=== PATIENT | female | born 1985 | race Hispanic/Latino ===

== ENCOUNTER 2022-03-18 10:23 | Outpatient (CLI) | payer OTHER | END 2022-03-18 10:24 | disposition home or self-care (01) | LOC: BICULT 10:23 | PROVIDERS: ATTEND Family Medicine | DX: M79.661 Pain in right lower leg (principal) ==

== ENCOUNTER 2023-02-11 12:25 | Outpatient (CLI) | payer OTHER | END 2023-02-11 12:26 | disposition home or self-care (01) | LOC: BICULT 12:25 | PROVIDERS: ATTEND Nurse Practitioner Family | DX: R10.2 Pelvic and perineal pain (principal); N88.8 Other specified noninflammatory disorders of cervix uteri | CPT/HCPCS: 76856 ==